=== PATIENT | male | born 2000 | race Caucasian/White ===

== ENCOUNTER 2024-07-11 12:48 | Emergency (ER) | payer OTHER, SELFPAY ==
--- NOTE | ~2024-07-11 | XR_ITS ---
EXAMINATION: XR CHEST, 2 VIEWS CLINICAL INFORMATION: Cough COMPARISON: None. TECHNIQUE: PA and lateral views of the chest were obtained. FINDINGS: Mild bronchial wall thickening is noted in both lungs, primarily perihilar. No consolidation, pneumothorax, or pleural effusion. Cardiac and mediastinal contours are normal. Pulmonary vasculature is unremarkable. Trachea is midline. Osseous structures are unremarkable. XR/XR chest 2V IMPRESSION: Bronchial wall thickening can be seen with a small airways process such as asthma or atypical/viral infection. Electronically signed by: Danny Cisneros MD 07/11/2024 05:30 PM EDT
[2024-07-11 13:29] VITALS: BP 148/82; PULSE 94; RESP 18; TEMP 36.9; O2SAT 98; BMI 57.9
--- NOTE | 2024-07-11 13:55 | ED_ITS ---
HPI - URI/Sore Throat General Chief Complaint: Upper Respiratory Symptoms Stated Complaint: Asthma Time Seen by Provider: 07/11/24 16:30 Source: patient, family, RN notes reviewed and old records reviewed Mode of arrival: ambulatory History of Present Illness ED Provider: Anika Lin PA-C [facility] Narrative: 23-year-old male with a past medical history of asthma presenting to the ED complaining of sore throat, productive cough, nasal congestion, mild SOB x few days. Denies having inhaler at home or recent steroid use. Denies fever, chills, travel, difficulty or inability to swallow. + sick contacts Related Data Previous Rx's ?Medication ?Instructions ?Recorded prednisone 20 mg tablet 40 mg (2 x 20 mg) PO DAILY 5 days 07/11/24 #10 tabs Allergies Allergy/AdvReac Type Severity Reaction Status Date / Time No Known Allergies Allergy Verified 07/11/24 13:31 Review of Systems Review of Systems: Yes all other systems are reviewed and are negative Constitutional: Constitutional: Reports as per [facility] Past Medical History Attestation statement: The following information was validated with the patient. Source: old records reviewed Social History Social History Advance Directives: No Advance Directives Information Provided: No Physical Exam Vital Signs: Vital Signs: Last Vital Signs Temp 97.9 F 07/11/24 18:03 Pulse 77 07/11/24 18:03 Resp 16 07/11/24 18:03 BP 158/92 H 07/11/24 18:03 Pulse Ox 96 07/11/24 18:03 O2 Del Method Room Air 07/11/24 18:03 BMI result Body Mass Index 57.9 Const: General: cooperative, healthy appearing and no acute distress Orientation/consciousness: patient oriented x3 Limitations: no limitations HEENT: Head: Yes normal to inspection and Yes atraumatic Ears: hearing grossly normal bilaterally, external ears normal and TM's normal bilaterally General nose exam: Normal external nose present Face and sinus: Yes normal facial exam Mouth: Normal oral and palatal mucosa present and no drooling Throat: Yes uvula midline, No peritonsillar mass, Yes posterior oropharynx abnormal (Mildly erythematous), No uvula laterally displaced and No uvular edema Eyes: General: appearance normal, both eyes and all related structures EOM: EOMs intact bilaterally Neck: Neck: Yes normal visual inspection and Yes no meningeal signs Resp: Effort & Inspection: normal respiratory effort, not labored and no respiratory distress Auscultation: clear to auscultation bilaterally, no crackles, no rales, no rhonchi and no wheezes Cardio: Rate: regular rate Heart sounds: S1 normal heart sound present and S2 normal heart sound present Skin: Rashes: no rashes Wounds: no wounds Neuro: General: patient oriented x3, tone normal and no meningeal signs Cranial nerves: Yes CN's II-XII intact bilaterally Gait exam (Neuro): Normal gait present Extrem: General: Yes normal to inspection Course Course Course Narrative: This is a rapid medical exam performed by Radha Waite PA-C 23-year-old male presenting with viral symptoms x2 days. Associated sore throat, dry cough. On exam, lungs are clear to auscultation, oropharynx is erythematous without exudate, there was no associated swelling. We will be obtaining a viral panel the patient will return to the waiting room pending full assessment -COVID/flu/RSV and rapid strep negative XR chest 2V IMPRESSION: Bronchial wall thickening can be seen with a small airways process such as asthma or atypical/viral infection. Results discussed with patient including worrisome signs and symptoms and strict return precautions, and when to return to the emergency department. They verbalized understanding and feel safe for discharge at this time. Medications Administered Discontinued Medications Generic Name Dose Route Start Last Admin Trade Name Freq PRN Reason Stop Dose Admin Albuterol Sulfate 4 puff 07/11/24 16:31 07/11/24 16:43 Albuterol Sulfate 90 Mcg 8 Gm Inhaler INHALE 07/11/24 16:32 4 puff ONCE ONE Administration Medical Decision Making Medical Decision Making MDM Narrative: 23-year-old male with a past medical history of asthma presenting to the ED complaining of sore throat, productive cough, nasal congestion, mild SOB x few days. On exam vital signs stable, NAD, nontoxic appearing, mild posterior oropharyngeal erythema. No exudates. Uvula midline. Lungs CTA. Concern for viral illness vs asthma exacerbation vs bronchitis vs strep pharyngitis. No evidence of retropharyngeal abscess or [employer]. Plan: Viral testing, rapid strep, CXR, albuterol inhaler Please refer to course for remaining clinical decision making, interpretation of labs/imaging results, and discussions with consultants and/or family members. Differential Diagnosis Differential Diagnoses: The differential diagnosis associated with the presentation includes As above Lab Data MDM Lab Attestation statement: I reviewed the patient's lab results. Labs: Lab Results 07/11/24 07/11/24 Range/Units 13:59 16:02 Influenza Type A (PCR) NEGATIVE (Negative) Influenza Type B (PCR) NEGATIVE (Negative) RSV RNA Qual (PCR) NEGATIVE (Negative) SARS-CoV-2 RNA (RT-PCR) NEGATIVE (Negative) S. pyogenes GrpA RUDY Negative (Negative) Independent Interpretation I performed an independent interpretation of an: Plain X-Ray Radiology Impression Discussion of test interpretation with radiology: I have reviewed the radiologist's reading. Independent Historian Clinical information obtained from an independent historian. History obtained from or confirmed by: Parent External Record Review External record reviewed: Inpatient record, Office record, Outpatient record, Prior outpatient labs, Prior outpatient radiology, Primary care record and Outside ED record Tests considered The following testing was considered but not selected: As above Prescription Management I considered prescription management with: Other Chronic Conditions Patient?s care impacted by: Other (Asthma) Discharge Plan Discharge Clinical Impression: Upper respiratory infection, Asthma Patient Disposition: Home, Self-Care Instructions: Asthma (DC), Upper Respiratory Infection (DC) Additional Instructions: You tested negative for COVID, flu, RSV and strep throat Your x-ray shows wall thickening consistent with asthma/viral infection Prednisone as a steroid please take as prescribed In addition use albuterol inhaler that was prescribed to you Please follow-up with her doctor If symptoms persist or worsen return to the ED Prescriptions: New prednisone 20 mg tablet 40 mg PO DAILY 5 Days Qty: 10 0RF Referrals: ED Physician,Generic [Physician] - Stand Alone Forms: Work/School Release Interventions: ED Discharge Assessment Last Done: 07/11/24 18:03 Discharge Date/Time: 07/11/24 18:04 Print Language: Bahamian
[2024-07-11 14:51] LABS: Influenza A PCR NEGATIVE (Negative); Influenza B PCR NEGATIVE (Negative); Resp Syncy Virus RNA Qual PCR NEGATIVE (Negative); SARS COV2 PCR INHOUSE NEGATIVE (Negative)
[2024-07-11 16:43] VITALS: PULSE 93; RESP 18; O2SAT 98
[2024-07-11] MEDS: Albuterol Sulfate 90 MCG 8 GM INHALER 4 PUFF INHALE (16:43)
[2024-07-11 17:30] LABS: IDNOW Serial# 08D9AD1C; Strep A Nucleic Acid Negative (Negative)
[2024-07-11 18:03] VITALS: BP 158/92; PULSE 77; RESP 16; TEMP 36.6; O2SAT 96
== END 2024-07-11 18:04 | disposition home or self-care (01) ==
PROVIDERS: Physician Assistant; Emergency Provider Emergency Medicine Emergency Medical Services
DX: J06.9 Acute upper respiratory infection, unspecified (principal); J02.9 Acute pharyngitis, unspecified; J45.909 Unspecified asthma, uncomplicated; R06.02 Shortness of breath; R05.9 Cough, unspecified; Z03.818 Encounter for observation for suspected exposure to other biological agents ruled out
CPT/HCPCS: 0241U; 71046; 87651; 94640; 99283; 99284